=== PATIENT | female | born 1960 | race Caucasian/White ===

== ENCOUNTER → 2017-05-23 | Outpatient (CLI) | payer OTHER | LOC: BMCIMAGING 08:21 | PROVIDERS: ATTEND Nurse Practitioner Adult Health | DX: R05 Cough (principal) ==

== ENCOUNTER 2017-05-27 07:50 | Inpatient (IN) | payer OTHER ==
--- NOTE | 2017-05-27 08:03 | CPEKG ---
Heart Rate: 104 RR Interval: 577 P-R Interval: 136 QRSD Interval: 66 QT Interval: 348 QTC Interval: 458 P [place]: 49 QRS [place]: 72 T Wave [place]: 44 EKG Severity - BORDERLINE ECG - EKG Impression: SINUS TACHYCARDIA EKG Impression: BORDERLINE T ABNORMALITIES, ANTERIOR LEADS Electronically Signed By: Blanco Michelle 27-May-2017 16:12:15
--- NOTE | 2017-05-27 08:26 | EDPHY ---
H & P Smoking Status: Never smoked Time Seen by Provider: 05/27/17 07:59 HPI/ROS: CHIEF COMPLAINT: Cough, fever, myalgias HISTORY OF PRESENT ILLNESS: 56-year-old female presents to the emergency department by private vehicle with her complaining of cough and fever. The patient states over last 1 month she has had a nonproductive cough. She saw her primary care provider last week and had a negative flu swab, negative strep test, and negative chest x-ray. She states that last night she became more acutely ill developed temperature of 101.7 degrees. She felt chilled and achy with diffuse myalgias. Her states that she coughed for several hours last night which was causing her to be short of breath. She states that she was "gagging". She has had some chest pressure. She denies any other chest pain. Specifically denies pleuritic chest pain. Denies abdominal pain. Patient has a history of stage III breast cancer in 2011 and has had multiples reconstructive surgeries. Her right breast has an area that has leaked fluid for several weeks. She saw her plastic surgeon a week ago and is scheduled to them again this week. She also has developed more pain and acute swelling to the right breast as well. She has a history of chronic lymphedema. She developed cellulitis in her right upper extremity and has been taking Keflex 500 mg four times daily for 8 days. She states that the cellulitis has improved. She states that her lymphedema which is chronic to the right upper extremity is "pretty good right now."She denies calf pain or swelling. REVIEW OF SYSTEMS: Constitutional: Fever, chills Eyes: No double or blurry vision. ENT: No sore throat. Respiratory: Cough, shortness of breath Cardiac: No chest pain. Gastrointestinal: No abdominal pain, vomiting or diarrhea. Genitourinary: No dysuria. Musculoskeletal: No neck or back pain. Skin: No rashes. Neurological: headache. (Kat Matson) Past Medical/Surgical History: Valley fever 2012, stage III breast cancer a 2011 treated with bilateral mastectomy, chemotherapy and radiation. She has had multiple reconstructive surgeries most recently February of 2017. (Kat Matson) Social History: (Kat Matson) Physical Exam: General Appearance: Alert, no distress. 37.7, heart rate 125, 124/80, 95% on room air. No respiratory distress. Patient does not appear ill. Eyes: Pupils equal and round. Extraocular motions are all intact. ENT: Mouth: Mucous membranes moist. Respiratory: No wheezing, rhonchi, or rales, lungs are clear to auscultation. Cardiovascular: Regular rate and rhythm. Gastrointestinal: Abdomen is soft and nontender, no masses, no rebound or guarding, bowel sounds normal. Neurological: Alert and oriented x 3, cranial nerves II through XII grossly intact Skin: Right breast reveals postsurgical changes. The inferior aspect of the right breast is erythematous. It is especially tender in the inferior lateral aspect of the right breast. There is some slight fluctuance noted. There is no lymphangitis. There is an area of serous drainage from the inferior aspect of the left breast which could possibly be from a stitch abscess. No purulent drainage expressed. There is no palpable axillary lymphadenopathy noted. Warm and dry, no rashes. Musculoskeletal: Nontender to palpate along the cervical, thoracic or lumbar spine. Neck is supple. Extremities: Full range of motion and no peripheral edema. Psychiatric: Patient is oriented X 3, there is no agitation. (Kat Matson) Constitutional: Initial Vital Signs Temperature (C) 37.7 C 05/27/17 07:52 Heart Rate 125 H 05/27/17 07:52 Respiratory Rate 22 H 05/27/17 07:52 Blood Pressure 124/80 H 05/27/17 07:52 O2 Sat (%) 96 05/27/17 07:52 O2 Delivery Mode Room Air Allergies/Adverse Reactions: Penicillins Allergy (Verified 05/27/17 07:51) Unknown Sulfa (Sulfonamide Antibiotics) [Sulfa(Sulfonamide Antibiotics)] Allergy ( Verified 05/27/17 07:51) Unknown Home Medications: Medication Instructions Recorded ESCITALOPRAM OXALATE [LEXAPRO] 20 mg PO HS 10/09/11 GABAPENTIN 600 mg PO BID 10/09/11 Simvastatin [Zocor 40 mg] 40 mg PO DAILY 10/09/11 buPROPion XL [Wellbutrin Xl] 300 mg PO DAILY 10/09/11 Cholecalciferol Vit D3 [Vitamin D3 2,000 units PO DAILY 02/16/13 2000 units (OTC)] LORazepam [Ativan] 0.5 - 1 mg PO HS PRN #0 tablet 01/18/16 Cephalexin [Cephalexin] 500 mg PO QID 05/27/17 Fluticasone/Salmeterol [Advair Hfa 1 puffs IH BID 05/27/17 45-21 Mcg Inhaler] Medical Decision Making - Diagnostics Imaging: Discussed imaging studies w/ scallop binder Radiologist, I viewed and interpreted images myself ED Course/Re-evaluation: 56-year-old female presents emergency department with fever, cough and myalgias. The patient also is having pain and swelling her right breast. Patient had elevated white blood cell count of over 16,000. Her chemistries were unremarkable. Her lactate was normal. Respiratory pathogen is pending. Given her pain and swelling which is acute involving the right breast, ultrasound has been ordered which revealed 4 cm x 1 cm area of complex fluid collection in the inferior lateral aspect of her right breast. Could possibly represent abscess formation. I spoke with the patient's plastic surgeon, Dr. Romero, who recommended aspiration of the fluid by the radiologist and he would see her tomorrow in the hospital. I explained to the patient the laboratory findings including elevated white blood cell count, fevers and diffuse myalgias. Blood cultures are pending. A chest x-ray was ordered which was normal. Patient clinically does not appear to have pneumonia. Patient had sepsis risk identified given leukocytosis and fever. Patient understands that respiratory pathogen is pending. Patient will have aspiration of fluid for Gram stain and culture. Patient is also currently on antibiotics for cellulitis to the right upper extremity which has improved. She also has history of chronic lymphedema. Case was discussed with Dr. Blanco Michelle, secondary supervising physician, who did not directly evaluate the patient but agrees with treatment and plan. (Kat Matson) He I did not see this patient while she was in the emergency department. However her care was discussed with the PA while the patient was in the department. I agree with treatment plan and management (Blanco Michelle) Differential Diagnosis: Shortness of breath including but not limited to pulmonary infectious process, COPD, asthma, pulmonary embolus and congestive heart failure. (Kat Matson) - Data Points Laboratory Results: Laboratory Results 05/27/17 08:10 05/27/17 08:10 Microbiology Results: MICROBIOLOGY 05/27/17 08:10 Blood Blood Culture - Preliminary 05/27/17 08:21 Breast - Discharge Gram Stain - Final 05/27/17 09:50 Nasal, Sinus - Swab Respiratory Panel (PCR) - Final No Organism Detected Medications Given: Acetaminophen (Tylenol) 650 mg PO Q4 PRN PRN Reason: Pain, Mild/Fever, Can Take PO Stop: 11/23/17 13:24 Last Admin: 05/27/17 14:24 Dose: 650 mg Atorvastatin Calcium (Lipitor) 20 mg PO DAILY KATHERINE Stop: 11/24/17 08:59 Last Admin: 05/28/17 08:11 Dose: 20 mg Bupropion HCl (Wellbutrin Xl) 300 mg PO DAILY KATHERINE Stop: 11/24/17 08:59 Last Admin: 05/28/17 08:12 Dose: 300 mg Chlorphenir/Hydrocodone Polistirex (Tussionex Suspension) 5 ml PO Q12HRS PRN PRN Reason: Cough, Severe Stop: 11/23/17 15:46 Last Admin: 05/27/17 21:16 Dose: 5 ml Enoxaparin Sodium (Lovenox) 40 mg SC DAILY KATHERINE Stop: 11/24/17 08:59 Last Admin: 05/28/17 10:19 Dose: 40 mg Escitalopram Oxalate (Lexapro) 20 mg PO HS KATHERINE Stop: 11/23/17 20:59 Last Admin: 05/27/17 20:13 Dose: 20 mg Gabapentin (Neurontin) 600 mg PO BID KATHERINE Stop: 11/23/17 20:59 Last Admin: 05/28/17 08:12 Dose: 600 mg Lorazepam (Ativan) 0.5 - 1 mg PO HS PRN PRN Reason: anxiety, shortness of breath Stop: 11/23/17 14:08 Last Admin: 05/27/17 21:16 Dose: 0.5 mg Discontinued Medications Vancomycin/Sodium Chloride (Vancomycin 1 Gm (Premix)) 250 mls @ 250 mls/hr IV Q24H [facility] Stop: 06/26/17 16:29 Last Admin: 05/27/17 16:34 Dose: 250 mls Miscellaneous Medication (Fluticasone/Salmeterol [Advair Hfa 45-21 Mcg Inhaler] ) 1 puffs IH BID KATHERINE Stop: 11/23/17 20:59 Last Admin: 05/27/17 21:16 Dose: Not Given Departure - Departure Disposition: [facility] In[facility] Acute Clinical Impression: Cellulitis of right breast, Abscess of right breast, Cough Fever Qualifiers: Fever type: unspecified Qualified Code(s): R50.9 - Fever, unspecified Condition: Good
[2017-05-27 08:33] LABS: PLATELET COUNT 236 10^3/uL (150-400)
[2017-05-27] MEDS ORDERED: LIDOCAINE 1% 300 MG/30 ML SDV ONE (12:26)
[2017-05-27] MEDS: ACETAMINOPHEN 325 MG TAB PO PRN (14:24)
[2017-05-27] MEDS ORDERED: IBUPROFEN 600 MG TAB PO PRN (15:45)
[2017-05-27] MEDS ORDERED: ACETAMINOPHEN 325 MG TAB PO PRN (15:45)
[2017-05-27] MEDS ORDERED: KETOROLAC 30 MG/1 ML SDV IVP PRN (15:45)
[2017-05-27] MEDS ORDERED: PROMETHAZINE HCL 25 MG/ML INJ IVP PRN (15:45)
[2017-05-27] MEDS ORDERED: HYDROmorphone HCL/NS 0.5 MG/ML SYR IVP PRN (15:45)
[2017-05-27] MEDS ORDERED: oxyCODONE IR 5 MG TAB PO PRN (15:45)
[2017-05-27] MEDS ORDERED: ONDANSETRON 4 MG/2 ML VIAL IVP PRN (15:45)
[2017-05-27] MEDS ORDERED: HYDROmorphONE/DILAUDID 1 MG/ML INJ IVP PRN (15:45)
[2017-05-27] MEDS ORDERED: traMADol 50 MG TAB PO PRN (15:45)
--- NOTE | 2017-05-27 16:21 | GHP ---
[f rep st] HISTORY AND PHYSICAL DATE OF ADMISSION: 05/27/2017 CHIEF COMPLAINT: Fever. HISTORY: The patient is a 56-year-old female with a history of breast cancer status post bilateral m astectomies with 8 reconstructive surgeries, last surgery on March 09, 2017. She presents with inc reased right breast erythema and fever. She had developed seepage from her breast incision for about a week, but only last night did she have associated extensive breast erythema and a very high fever. She is currently on Keflex for a right upper extremity cellulitis in her arm. She frequently gets cellulitis in her right upper extremity due to her chronic lymphedema. One week ago, she developed s ome increasing arm erythema and immediately got on Keflex, and the arm cellulitis is mostly resolved. This current infection has, however, occurred while she was finishing up this course of Keflex. Bk julian also complains of a cough for the last month, dry, nonproductive, with myalgias, and she has been s een as an outpatient, tested negative for influenza and strep. PAST MEDICAL HISTORY: 1. Breast cancer, status post bilateral mastectomies. Eight reconstructive surgeries with bilateral silicone implants. Last reconstructive surgery March 09, 2017, performed by Dr. Romero. 2. Chronic lymphedema to the right upper extremity. 3. Chronic skin radiation damage to the right breast. 4. Reactive airway disease. 5. History of valley fever. MEDICATIONS: Please see computer record for full detailed list. ALLERGIES: Penicillin, sulfa. SOCIAL HISTORY: No smoking, 1-2 glasses of wine per night. She lives with her . REVIEW OF SYSTEMS: Complete review of systems obtained. Review of systems negative regarding consti tutional, HEENT, GI, pulmonary, cardiovascular, , hematology, skin, muscular, endocrine, and psych, except for positives as in HPI. FAMILY HISTORY: Reviewed, noncontributory to presenting complaint. PHYSICAL EXAMINATION: GENERAL: Well-developed, well-nourished female, in no acute distress. VITAL SIGNS: Temperature 37.9, although fever on arrival to the floor was 102, pulse 96, blood pressure 11 5/64, satting 94% on room air. HEENT: Normal conjunctivae. Pupils equal and react to light. Sapna l ears and nose. Hearing intact. Normal teeth. Oropharynx moist. NECK: Trachea midline. No thyr omegaly. CHEST: Normal effort. LUNGS: Clear to auscultation bilaterally. CARDIOVASCULAR: Regula r rate and rhythm. No murmur. No lower extremity edema. ABDOMEN: Soft, nontender. No hepatomegal y. SKIN: Her right breast has an area of erythema. There is constant serosanguineous seepage from her wound. Her right upper extremity lymphedema is slightly swollen without erythema. MUSCULOSKELET AL: No cyanosis, clubbing. Strength 5/5 upper and lower extremities. NEURO: Cranial nerves intact . Normal sensation to light touch. PSYCH: Alert and oriented x3. Normal affect. Normal judgment and insight. Normal memory. LAB: White count 16.7, hematocrit 39.5, platelets 236. Sodium 138, potassium 4.3 chloride 103, bica rb 23, BUN 17, creatinine 0.9, glucose 99. Lactate 0.8. EKG viewed by me. My personal interpretati on is normal sinus rhythm, no ST-T wave changes. Chest x-ray is negative. Breast ultrasound showed an abscess of 4 cm with some possible fluid along the reconstructed prosthesis. ASSESSMENT/PLAN: 1. Right breast cellulitis with sepsis as evidenced by fever and leukocytosis. She went to [facility] nd with an attempted aspiration of the possible abscess of 4 cm. However, on ultrasound, it was foun d to be solid, and no fluid was expressed and is felt to be more consistent with mastitis. I will st art her on IV vancomycin and consult Infectious Disease. 2. Right upper extremity lymphedema. This also recently suffered a cellulitis, but this responded w ell to oral Keflex. 3. Cough. Her respiratory PCR is negative. Chest x-ray is negative. She will be treated supportdoris parker. 4. Breast cancer, status post bilateral mastectomy with reconstructive surgeries. She also had radi ation to her right breast which has led to extensive chronic skin changes, intermittent infections, a nd requirement for multiple reconstructions on that side. CODE STATUS: Full. ADMISSION STATUS: Will admit to inpatient as she is medically complex. Anticipate greater than 2 mi dnights. DVT PROPHYLAXIS: She is moderate risk. Will place on subcu Lovenox. /[id number]/MODL
[2017-05-27] MEDS ORDERED: VANCOMYCIN 1 GM in NS 250 ML IV SCH (16:30)
[2017-05-27] MEDS ORDERED: VANCOMYCIN HCL/NORMAL SALINE 250 ML IV SCH (16:30)
--- NOTE | 2017-05-27 17:00 | PDMN ---
Medical Necessity Medical necessity: C/M review: Patient meets INPT criteria under [facility] M-70 Cellulitis: Acute and persistent right breast cellulitis with sepsis, fever, increased right breast erythema, right breast US showed possible abscess of 4 cm , aspiration attempted, it was found to be solid and no fluid expressed, thought to be more consistent with mastitis, WBC 16.74, heart rate 106-107, requiring planned Infectious Disease consult, Wound Care consult, ongoing IV Vancomycin, comorbid chronic right upper extremity lymphedema, recent right upper extremity cellulitis (now mostly resolved) treated with oral Keflex, right upper extremity history of breast cancer S/P bilateral mastectomies with 8 reconstructive surgeries, last surgery 03/09/2017, patient developed seepage from right breast incision for about a week prior to this admission, history of chronic skin radiation damage to the right breast, reactive airway disease, Valley fever. MD anticipates > 2 [place] LOS for ongoing med nec for eval and TX of above.
[2017-05-27] MEDS: ESCITALOPRAM OXALATE 10 MG TAB PO SCH (20:13)
[2017-05-27] MEDS: GABAPENTIN 300 MG CAP PO SCH (20:14)
[2017-05-27] MEDS ORDERED: NON-FORMULARY NEW DRUG (Escitalopram Oxalate [Lexapro] 20 MG) PO SCH (21:00)
[2017-05-27] MEDS ORDERED: FLUTICASONE IH SCH (21:00)
[2017-05-27] MEDS ORDERED: NON-FORMULARY NEW DRUG (Gabapentin [Gabapentin] 600 MG) PO SCH (21:00)
[2017-05-27] MEDS ORDERED: SALMETEROL IH SCH (21:00)
[2017-05-27] MEDS: HYDROcodone/CPM TUSSIONEX 5 ML UDSYR PO PRN (21:16)
[2017-05-27] MEDS: FLUTICASONE IH SCH (21:16)
[2017-05-27] MEDS: LORazepam 1 MG TAB PO PRN (21:16)
[2017-05-27] MEDS: SALMETEROL IH SCH (21:16)
[2017-05-28 05:22] LABS: PLATELET COUNT 214 10^3/uL (150-400)
[2017-05-28] MEDS: ATORVASTATIN CALCIUM 20 MG TAB PO SCH (08:11)
[2017-05-28] MEDS: GABAPENTIN 300 MG CAP PO SCH ×2 (08:12→20:56)
[2017-05-28] MEDS: buPROPion XL 150 MG TAB PO SCH (08:12)
[2017-05-28] MEDS ORDERED: NON-FORMULARY NEW DRUG (Simvastatin [Zocor 40 Mg] 40 MG) PO SCH (09:00)
--- NOTE | 2017-05-28 09:14 | HOSPPROG ---
Hospitalist Progress Note Assessment/Plan: 56 yo F w h/o breast CA and multiple reconstructive surgeries, recurrent infections here w sepsis and breast cellulitis sepsis: septi physiology has resolved infection: continue vanc ID to see seen by Dr miguel likely needs picc for completion of outpt antibiotics given failure of keflex cough: post viral no infiltrate cxr proph: lmwh Subjective: case d/w dr miguel. cxr w no infiltrate (interp by me) Objective: Vital Signs Temp Pulse Resp BP Pulse Ox 36.8 C 95 16 124/70 H 93 05/28/17 08:06 05/28/17 08:06 05/28/17 08:06 05/28/17 08:06 05/28/17 08:06 Laboratory Results 05/28/17 04:17 05/28/17 04:17 05/27/17 05/28/17 05/29/17 05:59 05:59 05:59 Intake Total 1900 Balance 1900 - Physical Exam Constitutional: no apparent distress, appears nourished Eyes: PERRL, anicteric sclera Ears, Nose, Mouth, Throat: moist mucous membranes, hearing normal Cardiovascular: regular rate and rhythym, no murmur, rub, or gallop, No tachycardia Respiratory: no respiratory distress, no rales or rhonchi Gastrointestinal: normoactive bowel sounds, soft, non-tender abdomen Genitourinary: No mock in urethra Skin: warm, other (R breast w serous drainage, radiation changes, warmth. no fluctuance. improved per pt) Musculoskeletal: full muscle strength Neurologic: AAOx3 Psychiatric: interacting appropriately, not anxious ICD10 Worksheet Patient Problems: Problems Problem Status Onset Abscess of right breast Acute Cellulitis of right breast Acute Cough Acute Fever Acute allergic reaction to Oxycontin Active breast cancer Active breast reconstruction Active post mastectomy Active
--- NOTE | 2017-05-28 09:15 | ASMTCASEMG ---
Living Arrangements What is your living Answers: With Spouse arrangement? Who do you live with? Type Of Residence What kind of residence do Answers: House you live in? Discharge Plan Comments Coordination Status Comments Notes: Pt is a 56 y/o female admitted for fever, cough and a breast abscess. Pt has breast cancer status post bilateral mastectomies. Pt has chronic skin radiation damage to the right breast. Pt is currently on IV vanco. ID and wound care has been consulted. Needs are TBD at this time. CM to follow. Plan: TBD Date Signed: 05/28/2017 09:14 AM Electronically Signed By:DANIEL Ford
[2017-05-28] MEDS: ENOXAPARIN 40 MG/0.4 ML SYR SC SCH (10:19)
[2017-05-28] MEDS: SALMETEROL IH SCH ×2 (10:49→10:52)
[2017-05-28] MEDS: FLUTICASONE IH SCH ×2 (10:49→10:52)
[2017-05-28] MEDS: BENZONATATE 100 MG CAP PO PRN (10:55)
[2017-05-28] MEDS: guaiFENesin 600 MG TAB.ER PO SCH ×2 (12:01→20:55)
[2017-05-28] MEDS ORDERED: PNEUMOCOCCAL 0.5ML VACCINE VIAL IM ONE (12:35)
[2017-05-28] MEDS ORDERED: ALTEPLASE 2 MG VIAL IVP PRN (13:21)
--- NOTE | 2017-05-28 13:52 | WOCRNPDOC ---
WOCRN Advanced Assessment Note - Skin Integrity Problem, Advanced Assess Right Breast Abscess Dressing Type: ABD Pad, Other Other Dressing Type: patient's own sports bra Dressing Description: Intact, Shadowed Exudate Amount: Scant (Patient reports quantity of exudate varies dramatically) Exudate Color: Clear Exudate Characteristic(s): Serous Integumentary Issue Intervention: Visualized Under Dressing Filomena Wound Tissue: Erythema Wound Bed Color: Yellow Wound Bed Constitution: Adhered Slough Wound Edges: Well Defined Site Measurement - Head-to-Toe Length X Width X Depth (cm): 0.3x0.4x0.1 Skin Integrity Problem Comment: Patient with history of breast cancer and several reconstructive surgeries. Small, exudative wound along otherwise well healed surgical incision. Patient currently covering wound with ABD held in place by her sports bra. She reports an allergy to adhesives, making application of a dressing more difficult. Will continue with current plan as patient tolerating well and able to change out ABD as needed. Supplied patient with a couple of ABDs. Wound care will not continue to round. Please reconsult PRN.
[2017-05-28] MEDS ORDERED: LIDOCAINE 1% 300 MG/30 ML SDV ONE (14:35)
[2017-05-28] MEDS ORDERED: VANCOMYCIN 1 GM in NS 250 ML IV SCH (16:30)
[2017-05-28] MEDS: VANCOMYCIN 1.25 GM in D5W 250 ML IV SCH (16:36)
--- NOTE | 2017-05-28 18:27 | GCON ---
[f rep st] CONSULTATION INFECTIOUS DISEASES CONSULTATION DATE OF CONSULTATION: 05/28/2017 REQUESTING PHYSICIAN: Dr. Rakel Fernandez REASON FOR CONSULTATION: Right breast cellulitis. HISTORY OF PRESENT ILLNESS: The patient is a 56-year-old female with a past medical history of breas t cancer and prior infection in the right breast after reconstruction in 2012 due to Staphylococcus l ugdunensis, whom I am asked to see in consultation for recurrent right breast infection. The patient has had multiple reconstructive surgeries related to her preceding breast cancer and implants. The most recent reconstructive surgery occurred in February of this year. The patient also has experience d recurrent right upper extremity cellulitis with underlying lymphedema. Over the last several weeks , she did have a recurrent episode of arm cellulitis prompting initiation of cephalexin. This led to resolution of the arm cellulitis, but subsequently she developed right breast erythema and drainage from her incision line. This was associated with fever and shaking chills. Based on those findings, she was seen in the emergency department where she was noted to have a leukocytosis. Subsequently, she underwent ultrasound which suggested a cande-prosthesis fluid collection. Attempted aspiration un rajni ultrasound guidance was unsuccessful. The patient notes that the drainage from her incision line was serous in etiology. Cultures of this material have shown 2+ white blood cells with Gram stain a nd culture being negative. The patient has been started empirically on vancomycin and overall feels clinically improved with stable breast erythema. She has also been seen by Dr. Romero earlier today . The patient also complains of a dry cough for the last month with some associated dyspnea. She di d have a prior history of valley fever and did not undergo complete therapy due to fluconazole angela snider. Given the above findings, I am now asked to assist in her ongoing management. 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 PAST SURGICAL HISTORY: Multiple reconstructive surgeries for breast cancer/breast reconstruction. CURRENT MEDICATIONS: Vancomycin 1 g IV q.24 hours, Lipitor 20 mg p.o. daily, Tessalon Perles 200 mg 3 times a day as needed, Wellbutrin XL 300 mg p.o. daily, Lovenox 40 mg subcu daily, Lexapro 20 mg p. o. at bedtime, Neurontin 600 mg p.o. twice daily, Mucinex 1200 mg p.o. twice daily, Advair 1 puff twi ce daily. ALLERGIES: Penicillin as a child with unclear reaction (tolerates cephalosporins without difficulty) , sulfonamides, fluconazole associated with [employer] toxicity, adhesive tape. SOCIAL HISTORY: Patient does not smoke. She drinks alcohol socially. No drug use history. 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 Recent travel to [place]. No contact with her right breast in swimming pools or hot tubs. Pet dogs at home. FAMILY HISTORY: Breast cancer, coronary artery disease. REVIEW OF SYSTEMS: Outside that noted in the HPI, remainder of a 10-system review is unremarkable. PHYSICAL EXAMINATION: VITAL SIGNS: Temperature maximum 37.9, temperature current 37.1, heart rate 9 8, respiratory rate 16, blood pressure 92/57, oxygen saturation 93% on room air. GENERAL: Patient i s well nourished, well developed, in no acute distress. She appears nontoxic. HEENT: There is no s cleral icterus, conjunctival injection, or conjunctival petechiae. Oropharynx is clear without lesio ns. Mucous membranes are moist. Dentition is in fair repair. There is no nasal discharge. There i s no tenderness over the sinuses. NECK: Supple without palpable lymphadenopathy or thyromegaly. CH EST: Clear to auscultation bilaterally without adventitious sounds. The respiratory effort is stephen l. There is intermittent cough present. CARDIOVASCULAR: Regular rate and rhythm without murmurs, g allops, or rubs. ABDOMEN: Soft, nontender, nondistended. There is no palpable organomegaly. Bowel sounds are present. BREASTS: The right breast shows erythema with warmth over the midportion of th e breast along the incision line; there is a small opening along the incision line from which serous fluid can be expressed, but no purulence; erythema does not extend onto chest wall. MUSCULOSKELETAL: No cyanosis or clubbing. There is lymphedema of the right upper extremity. There is no active cari lulitis of right upper extremity. SKIN: See breast exam. There are no stigmata of endocarditis. S kin is warm and dry to touch. NEUROLOGIC: Patient is alert and interacts appropriately with examine r. Cranial nerves 2-12 are grossly intact. Sensation is decreased over the right breast. LYMPHATIC S: No cervical or supraclavicular nodes. There is lymphedema of the right upper extremity. There i s no lymphangitis. LABORATORY DATA: White blood cell count 10.8, hematocrit 35.8, platelets 214, neutrophils 73%. Seru m creatinine 0.8, venous lactate 0.8, blood cultures x2 no growth to date, serous discharge from the breast shows no organisms with cultures being no [id number]. Respiratory pathogen panel by PCR i s negative. Breast ultrasound and aspiration as outlined above. Chest x-ray shows no focal infiltra te. IMPRESSION: 1. Right breast infection with indwelling implant post reconstruction: Most likely, this will be du e to gram-positive candido, such as Staphylococcus aureus or beta-hemolytic streptococci. Given openin g along incision line and clinical appearance, I have concerns that implant may ultimately require re moval for resolution. Will review this further with Dr. Romero. The patient notes that she has dis cussed this consideration with Dr. Romero earlier today. Gram-negative rods also a consideration, a lthough suspect will be of lower likelihood. 2. History of coccidioidomycosis: Doubt cough related, and chest x-ray shows no infiltrate. RECOMMENDATIONS: 1. Agree with empiric vancomycin. Will increase to 1.25 g IV q.24 hours. 2. Follow blood and breast cultures as available. 3. Will review clinical findings and plan with Dr. Romero. Follow clinical response to above measu res. Thank you for this consultation. We will continue to follow the patient with you. /[id number]/MODL
[2017-05-28] MEDS: ACETAMINOPHEN 325 MG TAB PO PRN (20:54)
[2017-05-28] MEDS: ESCITALOPRAM OXALATE 10 MG TAB PO SCH (20:56)
[2017-05-28] MEDS: HYDROcodone/CPM TUSSIONEX 5 ML UDSYR PO PRN (20:56)
[2017-05-28] MEDS: LORazepam 1 MG TAB PO PRN (21:01)
[2017-05-29] MEDS: FLUTICASONE IH SCH ×2 (00:34→17:32)
[2017-05-29] MEDS: SALMETEROL IH SCH ×2 (00:34→17:32)
[2017-05-29] MEDS: GABAPENTIN 300 MG CAP PO SCH ×2 (08:10→20:26)
[2017-05-29] MEDS: ATORVASTATIN CALCIUM 20 MG TAB PO SCH (08:11)
[2017-05-29] MEDS: buPROPion XL 150 MG TAB PO SCH (08:11)
[2017-05-29] MEDS: guaiFENesin 600 MG TAB.ER PO SCH ×2 (08:11→20:26)
[2017-05-29] MEDS: ENOXAPARIN 40 MG/0.4 ML SYR SC SCH (08:11)
--- NOTE | 2017-05-29 09:22 | HOSPPROG ---
Hospitalist Progress Note Assessment/Plan: 56 yo F w h/o breast CA and multiple reconstructive surgeries, recurrent infections here w sepsis and breast cellulitis sepsis: septic physiology has resolved infection: continue vanc ID following, has picc line seen by Dr miguel concern is that she has a an infected implant and may need removal cough: post viral no infiltrate cxr proph: lmwh Subjective: case d/w dr guerrero. febrile overnight Objective: Vital Signs Temp Pulse Resp BP Pulse Ox 36.9 C 85 18 139/82 H 94 05/29/17 07:06 05/29/17 07:06 05/29/17 07:06 05/29/17 07:06 05/29/17 07:06 Laboratory Results 05/28/17 04:17 05/28/17 04:17 05/28/17 05/29/17 05/30/17 05:59 05:59 05:59 Intake Total 1899 1999 Balance 1899 1999 - Physical Exam Constitutional: no apparent distress, appears nourished Eyes: PERRL, anicteric sclera Ears, Nose, Mouth, Throat: moist mucous membranes, hearing normal Cardiovascular: regular rate and rhythym, no murmur, rub, or gallop Respiratory: no respiratory distress, no rales or rhonchi Gastrointestinal: normoactive bowel sounds, soft, non-tender abdomen Genitourinary: No mock in urethra Skin: other (breast erythematous and warm. unchanged) Musculoskeletal: full muscle strength, no muscle tenderness Neurologic: AAOx3, sensation intact bilaterally Psychiatric: interacting appropriately, not anxious Lymph, Heme, Immunologic: no cervical LAD ICD10 Worksheet Patient Problems: Problems Problem Status Onset Abscess of right breast Acute Cellulitis of right breast Acute Cough Acute Fever Acute allergic reaction to Oxycontin Active breast cancer Active breast reconstruction Active post mastectomy Active
--- NOTE | 2017-05-29 15:04 | PCMIDPN ---
Assessment/Plan: # Right breast cellulitis associated with implant, minimal improvement by report in cellulitic changes which are on the lower part of the breast and right axilla. White count is slightly improved. Persistent fever. --continue vancomycin in light of purulent discharge there is come some concern for Staph aureus. No known history of MRSA. --will check Vanco trough tomorrow --suspect need implant out for infection to adequately improve # Past history of right breast infection with Staphylococcus lugdunensis in 2013 Medications Vancomycin 1.25 g IV Q 24 Microbiology 05/27 blood cultures (2) NGTD 05/27 wound culture: No growth today Subjective: Patient does not feel significant change in redness and swelling of the right breast. Has decided she wants the implant removed and will probably not replace it Objective: Vital Signs Temp Pulse Resp BP Pulse Ox 36.9 C 85 18 139/82 H 94 05/29/17 07:06 05/29/17 07:06 05/29/17 07:06 05/29/17 07:06 05/29/17 07:06 Laboratory Results 05/28/17 04:17 05/28/17 04:17 05/28/17 05/29/17 05/30/17 05:59 05:59 05:59 Intake Total 1899 1999 Balance 1901999 - Physical Exam General Appearance: alert, no apparent distress Respiratory: No accessory muscle use Cardiac/Chest: other (Incision right breast well-healed, small area of opening with purulent discharge. Erythema over the bottom half of the breast tracking to the right axilla. Mild tenderness to palpation moderate warmth) Skin: No rash, No embolic lesions Neuro/Psych: alert, normal mood/affect, oriented x 3 - Line/s LUE PICC Lines: No drainage, No erythema - Time Spent With Patient Time Spent with Patient: greater than 35 minutes (Reviewing potential outcomes including removal of implant, need for suppressive antibiotics if implant retained, infection may not improve without removal of implant.) Time Spent with Patient: Greater than 35 minutes spent on this patients care, greater than 50% of time spent counseling, educating, and coordinating care regarding the above mentioned plan. ICD10 Worksheet Patient Problems: Problems Problem Status Onset Abscess of right breast Acute Cellulitis of right breast Acute Cough Acute Fever Acute allergic reaction to Oxycontin Active breast cancer Active breast reconstruction Active post mastectomy Active
[2017-05-29] MEDS: VANCOMYCIN 1.25 GM in D5W 250 ML IV SCH (16:25)
[2017-05-29] MEDS: ESCITALOPRAM OXALATE 10 MG TAB PO SCH (20:25)
[2017-05-29] MEDS: HYDROcodone/CPM TUSSIONEX 5 ML UDSYR PO PRN (20:26)
[2017-05-29] MEDS: LORazepam 1 MG TAB PO PRN (20:26)
[2017-05-29] MEDS: Fluticasone/Salmeterol [Advair Hfa 115-21 Mcg Inhaler] IH SCH (21:30)
[2017-05-30] MEDS: LORazepam 1 MG TAB PO PRN ×2 (02:32→20:45)
[2017-05-30] MEDS: guaiFENesin 600 MG TAB.ER PO SCH ×2 (10:01→20:45)
[2017-05-30] MEDS: buPROPion XL 150 MG TAB PO SCH (10:01)
[2017-05-30] MEDS: ENOXAPARIN 40 MG/0.4 ML SYR SC SCH (10:02)
[2017-05-30] MEDS: GABAPENTIN 300 MG CAP PO SCH ×2 (10:02→20:45)
[2017-05-30] MEDS: ATORVASTATIN CALCIUM 20 MG TAB PO SCH (10:02)
--- NOTE | 2017-05-30 11:32 | SOAPPROG ---
SOAP Progress Note Assessment/Plan: Assessment: Right breast Cellulitis with likely implant involvement Plan: To OR 05/31/17 for exploration and removal of right breast implant. 05/30/17 11:29 Subjective: Elizabet "feels like shit" Objective: Vital Signs Temp Pulse Resp BP Pulse Ox 36.9 C 86 14 128/70 H 93 05/30/17 08:00 05/30/17 08:00 05/30/17 08:00 05/30/17 08:00 05/30/17 08:00 Laboratory Results 05/28/17 04:17 05/28/17 04:17 05/29/17 05/30/17 05/31/17 05:59 05:59 05:59 Intake Total 1999 725 Balance 1999 725 right breast erythema with serous drainage from right IMF incision. ICD10 Worksheet Patient Problems: Problems Problem Status Onset Abscess of right breast Acute Cellulitis of right breast Acute Cough Acute Fever Acute allergic reaction to Oxycontin Active breast cancer Active breast reconstruction Active post mastectomy Active
--- NOTE | 2017-05-30 11:53 | ASMTCMCOM ---
CM Note CM Note Notes: Pt will go to OR tomorrow for removal of breast implant, unclear if pt will need IV abx at discharge, SARA w/f. Date Signed: 05/30/2017 11:53 AM Electronically Signed By:Salma Nicole RN
--- NOTE | 2017-05-30 11:57 | PCMIDPN ---
Assessment/Plan: # Right breast cellulitis associated with implant, White count is slightly not repeated. remarkable improvement in erythema --continue vancomycin in light of purulent discharge there is come some concern for Staph aureus. No known history of MRSA. --will check Vanco trough --I am less certain of implant involvement today, discussed extensively w patient, nursing, , Plastics # Past history of right breast infection with Staphylococcus lugdunensis in 2013 Medications Vancomycin 1.25 g IV Q 24h Microbiology 05/27 blood cultures (2) NGTD 05/27 wound culture: No growth today Subjective: feeling better less pain R breast no diarrhea Objective: Vital Signs Temp Pulse Resp BP Pulse Ox 36.9 C 86 14 128/70 H 93 05/30/17 08:00 05/30/17 08:00 05/30/17 08:00 05/30/17 08:00 05/30/17 08:00 Laboratory Results 05/28/17 04:17 05/28/17 04:17 05/29/17 05/30/17 05/31/17 05:59 05:59 05:59 Intake Total 1999 725 Balance 1999 72 C-Reactive Protein 74.0 mg/L (<10.0) H 05/29/17 04:17 - Physical Exam General Appearance: alert, no apparent distress Respiratory: No accessory muscle use Neck: supple Cardiac/Chest: other (Morgan erythema R breast, R axilla - significant improvement; still lateral tenderness, small opening 5mm under breast without purulence) Skin: normal color, warm/dry, No rash Neuro/Psych: alert, normal mood/affect, oriented x 3 - Time Spent With Patient Time Spent with Patient: greater than 35 minutes (care coordinated with DR. Romero, reviewed options 1) leaving implant then IV antibiotic then suppressive abx 2) antibiotic therpay then no suppressive 3) remove implant then antibiotics, no suppressive therapy) Time Spent with Patient: Greater than 35 minutes spent on this patients care, greater than 50% of time spent counseling, educating, and coordinating care regarding the above mentioned plan. ICD10 Worksheet Patient Problems: Problems Problem Status Onset Abscess of right breast Acute Cellulitis of right breast Acute Cough Acute Fever Acute allergic reaction to Oxycontin Active breast cancer Active breast reconstruction Active post mastectomy Active
[2017-05-30] MEDS: Fluticasone/Salmeterol [Advair Hfa 115-21 Mcg Inhaler] IH SCH ×2 (11:58→20:08)
--- NOTE | 2017-05-30 12:59 | HOSPPROG ---
Hospitalist Progress Note Assessment/Plan: 56 yo F w h/o breast CA and multiple reconstructive surgeries, recurrent infections here w sepsis and breast cellulitis sepsis: septic physiology has resolved infection: continue vanc ID following, has picc line seen by Dr miguel concern is that she has a an infected implant and may need removal ID and plastic surgery to discuss cough: post viral no infiltrate cxr proph: lmwh Subjective: case d.w dr jordan. improved today Objective: Vital Signs Temp Pulse Resp BP Pulse Ox 36.9 C 86 14 128/70 H 93 05/30/17 08:00 05/30/17 08:00 05/30/17 08:00 05/30/17 08:00 05/30/17 08:00 Laboratory Results 05/28/17 04:17 05/28/17 04:17 05/29/17 05/30/17 05/31/17 05:59 05:59 05:59 Intake Total 1999 725 Balance 1999 725 - Physical Exam Constitutional: no apparent distress, appears nourished Eyes: PERRL, anicteric sclera Ears, Nose, Mouth, Throat: moist mucous membranes, hearing normal Cardiovascular: regular rate and rhythym, no murmur, rub, or gallop Respiratory: no respiratory distress, no rales or rhonchi Gastrointestinal: normoactive bowel sounds, soft, non-tender abdomen Genitourinary: no bladder fullness, No mock in urethra Skin: warm, normal color, other (breast w decreased erythema) Musculoskeletal: full muscle strength Neurologic: AAOx3 ICD10 Worksheet Patient Problems: Problems Problem Status Onset Abscess of right breast Acute Cellulitis of right breast Acute Cough Acute Fever Acute allergic reaction to Oxycontin Active breast cancer Active breast reconstruction Active post mastectomy Active
[2017-05-30] MEDS ORDERED: VANCOMYCIN 1.25 GM in NS 250 ML IV SCH (16:30)
[2017-05-30] MEDS ORDERED: VANCOMYCIN HCL/NORMAL SALINE 250 ML IV SCH (17:00)
[2017-05-30] MEDS: VANCOMYCIN 1 GM in NS 250 ML IV SCH (17:19)
[2017-05-30] MEDS: ESCITALOPRAM OXALATE 10 MG TAB PO SCH (20:45)
[2017-05-30] MEDS: HYDROcodone/CPM TUSSIONEX 5 ML UDSYR PO PRN (20:45)
[2017-05-30] MEDS: BENZONATATE 100 MG CAP PO PRN (22:01)
[2017-05-31] MEDS: LORazepam 1 MG TAB PO PRN (00:50)
[2017-05-31] MEDS: VANCOMYCIN 1 GM in NS 250 ML IV SCH (05:32)
[2017-05-31 07:35] VITALS: BP 150/76
--- NOTE | 2017-05-31 09:31 | PCMIDPN ---
Assessment/Plan: # Right breast cellulitis associated with implant, stable clinical exam. Plan to try to treat aggressively with IV antibiotics and re-assess next week. Definite chance of implant involvement. Plan vancomycin 1 g IV Q 12, dose increased yesterday with low trough of 5. Interagency he completed an care coordinated with case management and hospitalist and plastic surgeon. # Past history of right breast infection with Staphylococcus lugdunensis in 2013 Medications Vancomycin 1.25 g IV Q 12h Microbiology 05/27 blood cultures (2) NGTD 05/27 wound culture: No growth today Subjective: Pain associated with right breast is about the same as yesterday Objective: Vital Signs Temp Pulse Resp BP Pulse Ox 36.8 C 87 18 150/76 H 92 05/31/17 07:34 05/31/17 07:34 05/31/17 07:34 05/31/17 07:34 05/31/17 07:34 Laboratory Results 05/28/17 04:17 05/28/17 04:17 05/30/17 05/31/17 06/01/17 05:59 05:59 05:59 Intake Total 725 Balance 725 C-Reactive Protein 74.0 mg/L (<10.0) H 05/29/17 04:17 - Physical Exam EENT: normal ENT inspection, No scleral icterus Respiratory: No accessory muscle use Cardiac/Chest: other (Ready erythema over lower breast most prominent midline area with associated erythema right axilla. Mild induration and warmth) Skin: No rash Neuro/Psych: alert, normal mood/affect, oriented x 3 - Line/s LUE PICC Lines: No drainage, No erythema, No other - Time Spent With Patient Time Spent with Patient: greater than 35 minutes Time Spent with Patient: Greater than 35 minutes spent on this patients care, greater than 50% of time spent counseling, educating, and coordinating care regarding the above mentioned plan. ICD10 Worksheet Patient Problems: Problems Problem Status Onset allergic reaction to Oxycontin Active breast cancer Active breast reconstruction Active post mastectomy Active Abscess of right breast Acute Cellulitis of right breast Acute Cough Acute Fever Acute
[2017-05-31] MEDS: ATORVASTATIN CALCIUM 20 MG TAB PO SCH ×2 (09:35→09:51)
[2017-05-31] MEDS: buPROPion XL 150 MG TAB PO SCH ×2 (09:35→09:50)
[2017-05-31] MEDS: ENOXAPARIN 40 MG/0.4 ML SYR SC SCH (09:36)
[2017-05-31] MEDS: GABAPENTIN 300 MG CAP PO SCH ×2 (09:36→09:50)
[2017-05-31] MEDS: guaiFENesin 600 MG TAB.ER PO SCH ×2 (09:37→09:51)
--- NOTE | 2017-05-31 09:45 | HOSPPROG ---
Hospitalist Progress Note Assessment/Plan: 56 yo F w h/o breast CA and multiple reconstructive surgeries, recurrent infections here w sepsis and breast cellulitis sepsis: septic physiology has resolved infection: continue vanc ID following, has picc line seen by Dr miguel concern is that she has a an infected implant and may need removal ID and plastic surgery to discuss cough: post viral no infiltrate cxr proph: lmwh dispo: home today > 30 minutes on dc Subjective: paln is to go home w outpt IV abx Objective: Vital Signs Temp Pulse Resp BP Pulse Ox 36.8 C 87 18 150/76 H 92 05/31/17 07:34 05/31/17 07:34 05/31/17 07:34 05/31/17 07:34 05/31/17 07:34 Laboratory Results 05/28/17 04:17 05/28/17 04:17 05/30/17 05/31/17 06/01/17 05:59 05:59 05:59 Intake Total 725 Balance 725 - Physical Exam Constitutional: no apparent distress, appears nourished Eyes: PERRL, anicteric sclera Ears, Nose, Mouth, Throat: moist mucous membranes, hearing normal Cardiovascular: regular rate and rhythym, no murmur, rub, or gallop Respiratory: no respiratory distress, no rales or rhonchi Gastrointestinal: normoactive bowel sounds, soft, non-tender abdomen Genitourinary: no bladder fullness, No mock in urethra Skin: warm Musculoskeletal: full muscle strength Neurologic: AAOx3 ICD10 Worksheet Patient Problems: Problems Problem Status Onset Abscess of right breast Acute Cellulitis of right breast Acute Cough Acute Fever Acute allergic reaction to Oxycontin Active breast cancer Active breast reconstruction Active post mastectomy Active
--- NOTE | 2017-05-31 10:05 | ASMTCMCOM ---
CM Note CM Note Notes: Spoke w/MD, pt will dc home w/home infusion. CM sent referral to [facility], pt is otherwise independent and will dc home w/support of . DC Plan: Home infusion/ [facility] Date Signed: 05/31/2017 10:04 AM Electronically Signed By:Salma Nicole RN
--- NOTE | 2017-05-31 10:24 | PDIAF ---
- Diagnosis Diagnosis: R breast cellulitis Code Status: Full Code - Medication Management Discharge Medications: Medications to Continue on Transfer ESCITALOPRAM OXALATE [LEXAPRO] 20 mg PO HS 10/09/11 [Last Taken 05/26/17] GABAPENTIN 600 mg PO BID 10/09/11 [Last Taken 05/26/17 21:00] Simvastatin [Zocor 40 mg] 40 mg PO DAILY 10/09/11 [Last Taken 05/26/17] buPROPion XL [Wellbutrin 150mg XL] 300 mg PO DAILY 10/09/11 [Last Taken 05/26/17 ] Cholecalciferol Vit D3 [Vitamin D3 2000 units] 2,000 units PO DAILY 02/16/13 [ Last Taken 05/26/17] LORazepam [Ativan] 0.5 - 1 mg PO HS PRN #0 tablet 01/18/16 [Last Taken Unknown] Fluticasone/Salmeterol [Advair Hfa 115-21 Mcg Inhaler] 1 puffs IH BID 05/29/17 [ Last Taken Unknown] HYDROcodone/CPM TUSSIONEX [Tussionex Suspension (RX)] 115 ml PO HS #1 btl [Last Taken Unknown] LORazepam [Ativan (*)] 0.5 - 1 mg PO HS PRN #30 tab 05/31/17 [Last Taken Unknown ] Vancomycin [Vancomycin (*)] 1 gm IV Q12H vial 05/31/17 [Last Taken Unknown] [facility] Antibiotics: vancomycin 1gm IV [id number] [facility] Antibiotic Stop Date: 06/07/17 Discharge Medications: Refer to the Discharge Home Medication list for PRN reason. PICC Care - Routine: Yes - Orders Services needed: Home Care, Registered Nurse Home Care Face to Face: I certify that this patient was under my care and that I had the required [id number]-po-[id number] encounter meeting the encounter requirements on the discharge day. My findings support the fact that the patient is homebound as defined in Home Care Face to Face Continued: CMS Chapter 7 Medicare Benefits Manual 30.1.1 , The condition of the patient is such that there exists a normal inability to leave home and consequently, leaving home would require a considerable and taxing effort. Isolation Type: Droplet Isolation - Labs/Radiology CBC w/diff Date: 06/04/17 (weekly sunday) CMP Date: 06/04/17 (weekly sunday) Vanco Trough Date and Time: 06/04/17 Call or Fax Lab and Imaging Results to: Yahaira Wilson MD [facility]ious [facility] at fax [phone] - Follow Up Care Current Providers and Referrals: Shayy Case MD [Primary Care Provider] - As per Instructions Yahaira Wilson MD [Medical Doctor] - 06/06/17 2:30 pm
--- NOTE | 2017-05-31 16:54 | GDS ---
[f rep st] DISCHARGE SUMMARY DISCHARGE DIAGNOSES: 1. Recurrent right breast cellulitis. 2. History of breast cancer with radiation therapy to the right breast. 3. Cough. CONSULT: Plastic Surgery and ID. HOSPITAL COURSE: Please see admission history and physical by Dr. Rakel Fernandez. The patient prese nted with cellulitis of the right breast. She received vancomycin. There is no microbiologic data. She has a history of strep in the past but given her rapid failure of an outpatient course of antibi otics, vancomycin was initiated. There was a lot of discussion about removal of the implant, but ult imately given her improvement on hospital day 3, it was elected to leave it in and treat with a prolo nged course. The patient has outpatient followup with Infectious Disease and Dr. Tricia Romero . /[id number]/MODL
--- NOTE | 2017-05-31 17:16 | ASDISCHSUM ---
Discharge Information Plan Status:IV ABX/Infusion Medically Cleared to Leave: Discharge Date:05/31/2017 11:39 AM D/C Disposition:Home Health Service ADT D/C Disposition:Home, Routine, Self-Care Projected Discharge Date:05/31/2017 11:00 AM Transportation at D/C:Family Discharge Delay Reason: Follow-Up Date:05/31/2017 11:00 AM Discharge Slot: Final Diagnosis: Placement Information Referral Type:Home Infusion Referral ID:[id number] Provider Name:[facility] ([place], [place]) (Formerly [facility]) Address 1:[address] Address 2: City:[place] Selection Factors: State:[place] Patient Contact Information Contact Name:GEOFFREY Relationship: Address:[address] [place] [address] Home Phone: City:[place] Alternate Phone: State/Zip Code:[place] [address] Email: Financial Information Financial Class:Colibri Heart Valve [facility] Primary [facility] Desc[facility] Primary Plan Number:[id number] Secondary Plan Desc: Secondary Plan Number: Assessment Information LACE LACE Length of stay for Answers: 4-6 days current admission Acuity / Level of Answers: Yes Care: Did the patient have an inpatient admission? Comorbidities - select Answers: Other Notes: breast cancer status po st all that apply bilateral mastectomies, chronic lymphedema, chronic ski n radiation damage on R breast, reactive airway disease, hx of valley fever # of Emergency department Answers: 1-2 visits in the last 6 months Social determinants Answers: Mental health diagnosis (anxiety, depression, pers onality disorders, etc.) Score: 12 Date Signed: 05/31/2017 10:01 AM Electronically Signed By:Salma Nicole RN [facility] Initial CM Assessment Living Arrangements What is your living Answers: With Spouse arrangement? Who do you live with? Type Of Residence What kind of residence do Answers: House you live in? Discharge Plan Comments Coordination Status Comments Notes: Pt is a 56 y/o female admitted for fever, cough and a breast abscess. Pt has breast cancer status post bilateral mastectomies. Pt has chronic skin radiation damage to the right breast. Pt is currently on IV vanco. ID and wound care has been consulted. Needs are TBD at this time. CM to follow. Plan: TBD Date Signed: 05/28/2017 09:14 AM Electronically Signed By:DANIEL Ford [facility] CM Progress Note CM Note CM Note Notes: Pt will go to OR tomorrow for removal of breast implant, unclear if pt will need IV abx at discharge, CM w/f. Date Signed: 05/30/2017 11:53 AM Electronically Signed By:Salma Nicole RN [facility] CM Progress Note CM Note CM Note Notes: Spoke w/, pt will dc home w/home infusion. CM sent referral to [facility], pt is otherwise independent and will dc home w/support of . DC Plan: Home infusion/ [facility] Date Signed: 05/31/2017 10:04 AM Electronically Signed By:Salma Nicole RN Case Management Discharge Plan Note Case Management Discharge Discharge Order Complete? Answers: Yes Patient to Obtain Answers: Other Notes: [facility] Medications Transportation Arranged Answers: Family/Friends Faxed Final Orders Answers: Yes Family Notified Answers: Yes Discharge Comments Notes: Geo/lilia AVILA, final orders faxed. Amy at [facility] and Araseli at [facility] notified, RN to call report. Date Signed: 05/31/2017 11:52 AM Electronically Signed By:Salma Nicole RN Intervention Information
== END 2017-05-31 11:39 | disposition home or self-care (01) | DRG 921 ==
LOC: F3E 12:24 → OBSVTOIN 15:44
PROVIDERS: ADMIT Internal Medicine; ATTEND Internal Medicine
PROC: 02HV33Z Insertion of Infusion Device into Superior Vena Cava, Percutaneous Approach (ICD-10-PCS; principal; 2017-05-28)
DX: T85.79XA Infection and inflammatory reaction due to other internal prosthetic devices, implants and grafts, initial encounter (principal); N61.1 Abscess of the breast and nipple; J45.909 Unspecified asthma, uncomplicated; I97.2 Postmastectomy lymphedema syndrome; R05 Cough; Z90.13 Acquired absence of bilateral breasts and nipples; Z23 Encounter for immunization; Z85.3 Personal history of malignant neoplasm of breast; Z88.0 Allergy status to penicillin
CPT/HCPCS: C1751; G0009; J1650; J1885; J2997; J3370

== ENCOUNTER 2017-07-20 09:25 | Inpatient (IN) | payer OTHER ==
[2017-07-20] MEDS ORDERED: HYDROCODONE/APAP 5/325 TAB PO PRN (09:45)
[2017-07-20] MEDS: NS 1,000 ML IV SCH ×2 (09:49→21:27)
[2017-07-20] MEDS ORDERED: HYDROmorphONE/DILAUDID 1 MG/ML INJ IVP PRN (09:50)
[2017-07-20] MEDS ORDERED: ONDANSETRON DISINTEGRATING 4 MG TAB PO PRN (09:50)
[2017-07-20] MEDS ORDERED: ONDANSETRON 4 MG/2 ML VIAL IVP PRN (09:50)
[2017-07-20] MEDS: ceFAZolin 2 GM/DEXTROSE 100 ML IV SCH ×2 (09:54→16:45)
--- NOTE | 2017-07-20 09:55 | PDGENHP ---
History and Physical - Chief Complaint breast pain, fever - History of Present Illness 57 yo female with h/o breast cancer diagnosed in 2011 s/p b/l mastectomy, chemo , radiation and breast implants complicated by infection. She was treated with 10 days of IV Vancomycin followed by oral Keflex for a breast infection related to wound dehiscence from reconstruction in 05/2017. She has since been on suppressive cephalexin, which was stopped 2 days prior to arrival. This morning , she developed fever to 101 and increased breast pain. No N/V. No abdominal pain, CP or SOB. She saw Dr. Wilson in ID clinic and was sent to hospital for direct admission. Dr. Romero, plastic surgery, is consulted and will plan to operate to remove current implant and wash out infection. Wound culture was obtained. Blood cultures will be drawn and she is started on IV Ancef. NPO for now pending surgery likely today. Pt has requested to have her right implant removed during this trip to the OR due to ongoing issues with infection and she would like to avoid further complications. She will review this with Dr. Romero prior to surgery today. History Information - Allergies/Home Medication List Allergies/Adverse Reactions: oxycodone Allergy (Unknown, Verified 07/20/17 15:44) Hives Sulfa (Sulfonamide Antibiotics) Allergy (Unknown, Verified 07/20/17 15:44) Unknown adhesive tape Allergy (Verified 05/28/17 13:57) Itching Penicillins Allergy (Verified 05/28/17 13:59) Unknown Home Medications: ESCITALOPRAM OXALATE [LEXAPRO] 20 mg PO HS 10/09/11 [Last Taken 07/19/17] GABAPENTIN 600 mg PO BID 10/09/11 [Last Taken 07/20/17] Simvastatin [Zocor 40 mg] 40 mg PO DAILY 10/09/11 [Last Taken 07/19/17] buPROPion XL [Wellbutrin 150mg XL] 300 mg PO DAILY 10/09/11 [Last Taken 07/20/17 ] Cholecalciferol Vit D3 [Vitamin D3 2000 units] 2,000 units PO HS 02/16/13 [Last Taken 07/19/17] Fluticasone/Salmeterol [Advair Hfa 115-21 Mcg Inhaler] 1 puffs IH BID 05/29/17 [ Last Taken Unknown] HYDROcodone/CPM TUSSIONEX [Tussionex Suspension (RX)] 115 ml PO HS PRN 07/20/17 [Last Taken Unknown] I have personally reviewed and updated: family history, medical history, social history, surgical history - Past Medical History hyperlipidemia Additional medical history: breast cancer diagnosed 2011 - followed by Dr. Lamb , currently in remission. s/p b/l mastectomy with implants. h/o breast infection related to implant, s/p implant removal and reimplantation 01/2013. H /O coccidiomycosis - Surgical History Additional surgical history: b/l mastectomy. breast implants, right side removed and remimplanted 2/2 infection - Family History Positive for: non-pertinent - Social History Smoking Status: Never smoked Additional social history: , retired [employer]. at bedside. Review of Systems Review of Systems: ROS: 10pt was reviewed & negative except for what was stated in HPI & below Physical Exam Physical Exam: Temp Pulse Resp BP Pulse Ox 38.6 C H 110 H 18 117/86 H 95 07/20/17 09:41 07/20/17 09:41 07/20/17 09:41 07/20/17 09:41 07/20/17 09:41 Constitutional: no apparent distress Eyes: PERRL Ears, Nose, Mouth, Throat: moist mucous membranes Cardiovascular: regular rate and rhythym Respiratory: no respiratory distress, clear to auscultation Gastrointestinal: normoactive bowel sounds, soft, non-tender abdomen Skin: warm, other (left breast with central and inferior mild erythema vs chronic discoloration, +warm to touch, wound device in breast) Musculoskeletal: full muscle strength Neurologic: AAOx3 Psychiatric: interacting appropriately Lab Data & Imaging Review 07/20/17 10:10 07/20/17 10:10 Assessment & Plan Assessment: Right breast infection - recently treated with Vanco and Keflex, infection recurred 2 days after stopping keflex. No hypotension, but a bit tachycardic. -Ancef 2g IV q8h per ID, appreciate assistance -wound Cx pending from clinic, BCx's sent -Dr. Romero to take to OR today for right implant removal due to ongoing infectious problems (possibly left implant removal for pplx per pt request, depending on surgical opinion) -NPO for now, NS initiated on arrival -send cbc, cmp, lactate, INR Sepsis 2/2 above (HR, temp, wbc's, breast infection) - no criteria for severe sepsis. -bolus 1L now -cont NS, atbx, trend wbc's H/O breast cancer - s/p b/l mastectomy with implants and associated infectious complications as outlined above Hyperlipidemia - cont statin Full code DVT PPLX - defer pharm for now as likely to go to OR today, start Lovenox 24 hrs post-op. SCD's for now Dispo - inpt, anticipate >48 hrs hospitalization for ongoing management of breast infection
[2017-07-20 10:24] LABS: PLATELET COUNT 207 10^3/uL (150-400)
[2017-07-20 10:35] LABS: INR 1.03 (0.83-1.16); PROTIME(PATIENT) 13.7 SEC (12.0-15.0)
[2017-07-20] MEDS ORDERED: HYDROCODONE PO PRN (12:08)
[2017-07-20] MEDS ORDERED: CHLORPHENIRAMINE PO PRN (12:08)
--- NOTE | 2017-07-20 12:19 | PDMN ---
Medical Necessity Medical necessity: Patient meets inpatient criteria per physician note and [facility] [place] -[facility] Cellulitis (history of breast cancer, s/p chemo, radiation, and breast implant complicated by infection; treated w/cephalosporin for breast infection , then suppressive cephalexin which was stopped 2 days prior to admission, now w/temp to 101, increased breast pain and tachycardia to 110, leukocytosis/ WBC > 12,000; anticipated LOS > 2 midnights for ongoing IV antibiotics, pending return to surgery.)
--- NOTE | 2017-07-20 12:21 | PCMIDPN ---
Assessment/Plan: Fever, malaise, leukocytosis due to R breast cellulitis associated with implant in place from breast reconstruction following mastectomy for breast cancer. Minimal skin changes at the time of admission but significant warmth and pain at the right breast. Further, when wound was probed significant drainage was easily expressed. Patient without history of MRSA and infection was easily controlled with suppressive Keflex therefore doubt MRSA is mediating this infection. Would direct therapy toward Streptococcus and MSSA. Normal renal function --start IV cefazolin --blood cx --Dr. Romero remove implant this afternoon and take OR cultures --wound culture was taken in ID clinic Subjective: 56 year old /White female with a history of bilateral mastectomy for breast cancer, coccidiomycosis, right breast cellulitis/implant infection s/p removal and reimplantation 02/18/2013 (cultures showing Staph lugdunensis and Haemophilus parainfluenza) who most recently had cellulitis associated with preceding small area of dehiscence of breast reconstruction incision in May 2017. Patient with underlying breast implant with concern of involvement with cellulitis. Patient initially received IV vancomycin 05/28/2017 through 06/06/2017 and had a good response and I transitioned her to Keflex 500 mg three times daily due to strong suspicion that Streptococcus was mediated in her disease. Cultures were unrevealing. Patient was maintained on Keflex 3 times daily during travels over the month of June and on Sunday07/18/2017 she discontinued Keflex on the instruction of her plastic surgeon with the plans of either closing this small area of dehiscence if no infection returned, or removal of implant if infection returned. This morning/last night patient developed increasing pain and drainage of the right breast and fever to almost 102 with associated malaise. She urgently came to our office and was evaluated by me and was found to be tachycardic and febrile with painful right breast with drainage. Initially we thought we could manage her disease through IV antibiotic infusion but with increasing right breast pain and malaise I admitted her to the hospital. Care was coordinated with Dr. Teressa Martinez and Dr. Binu Romero. Patient is to go to the OR this afternoon to have implant removed. Objective: Vital Signs Temp Pulse Resp BP Pulse Ox 38.6 C H 110 H 18 117/86 H 95 07/20/17 09:41 07/20/17 09:41 07/20/17 09:41 07/20/17 09:41 07/20/17 09:41 Laboratory Results 07/20/17 10:10 07/20/17 10:10 My physical exam was documented in clinic note. ICD10 Worksheet Patient Problems: Problems Problem Status Onset allergic reaction to Oxycontin Active breast cancer Active breast reconstruction Active post mastectomy Active Abscess of right breast Acute Cellulitis of right breast Acute Cough Acute Fever Acute
[2017-07-20] MEDS: HYDROmorphONE/DILAUDID 1 MG/ML INJ IVP PRN ×3 (12:55→18:59)
[2017-07-20] MEDS ORDERED: NS 1,000 ML IV ONE (13:52)
[2017-07-20] MEDS: HYDROCODONE/APAP 5/325 TAB PO PRN ×3 (14:33→23:38)
[2017-07-20] MEDS ORDERED: LR 1,000 ML IV ONE (15:42)
[2017-07-20] MEDS ORDERED: BACITRACIN ZINC 14.2 GM OINTTUBE TP ONE (15:59)
[2017-07-20] MEDS ORDERED: LIDOCAINE 1% 300 MG/30 ML SDV ONE (16:00)
[2017-07-20] MEDS ORDERED: BUPIVACAINE 0.25% 30 ML SDV ONE (16:00)
[2017-07-20] MEDS ORDERED: EPINEPHrine 1 MG/ML INJ ONE (16:00)
[2017-07-20] MEDS ORDERED: GENTAMICIN SULFATE 80 MG/2 ML VIAL ONE (16:00)
[2017-07-20] MEDS ORDERED: BACITRACIN 50,000 UNITS/10 ML SYR IRR ONE (16:01)
[2017-07-20] MEDS ORDERED: ceFAZolin 1 GM/5 ML SYR ONE (16:01)
--- NOTE | 2017-07-20 16:14 | PDANEPAE ---
ANE History of Present Illness Breast implants removal ANE Past Medical History - Cardiovascular History Hx Hypertension: No Hx Arrhythmias: No Hx Coronary Artery / Peripheral Vascular Disease: No Hx CHF / Valvular Disease: No Hx Palpitations: No - Pulmonary History Hx COPD: No Hx Asthma/Reactive Airway Disease: No Hx Oxygen in Use at Home: No Hx Sleep Apnea: Yes Sleep Apnea Screening Result - Last Documented: Positive - Endocrine History Hx Diabetes: No Hypothyroid: No Hyperthyroid: No Obesity: mild - Renal History Hx Renal Disorders: No - Neurological & Psychiatric Hx Hx Neurological and Psychiatric Disorders: Yes - Chronic Pain History Chronic Pain: No ANE Review of Systems Review of Systems: - Exercise capacity METS (RN): 4 METS ANE Patient History - Allergies Allergies/Adverse Reactions: oxycodone Allergy (Unknown, Verified 07/20/17 15:44) Hives Sulfa (Sulfonamide Antibiotics) Allergy (Unknown, Verified 07/20/17 15:44) Unknown adhesive tape Allergy (Verified 05/28/17 13:57) Itching Penicillins Allergy (Verified 05/28/17 13:59) Unknown - Home Medications Home Medications: ESCITALOPRAM OXALATE [LEXAPRO] 20 mg PO HS 10/09/11 [Last Taken 07/19/17] GABAPENTIN 600 mg PO BID 10/09/11 [Last Taken 07/20/17] Simvastatin [Zocor 40 mg] 40 mg PO DAILY 10/09/11 [Last Taken 07/19/17] buPROPion XL [Wellbutrin 150mg XL] 300 mg PO DAILY 10/09/11 [Last Taken 07/20/17 ] Cholecalciferol Vit D3 [Vitamin D3 2000 units] 2,000 units PO HS 02/16/13 [Last Taken 07/19/17] Fluticasone/Salmeterol [Advair Hfa 115-21 Mcg Inhaler] 1 puffs IH BID 05/29/17 [ Last Taken Unknown] HYDROcodone/CPM TUSSIONEX [Tussionex Suspension (RX)] 115 ml PO HS PRN 07/20/17 [Last Taken Unknown] - NPO status NPO Status: no food or drink >8 hours NPO Since - Liquids (Date): 07/20/17 NPO Since - Liquids (Time): 00:00 NPO Since - Solids (Date): 07/20/17 NPO Since - Solids (Time): 00:00 - Anes Hx Anes Hx: no prior problems - Smoking Hx Smoking Status: Never smoked Marijuana use: No - Alcohol Use Alcohol Use: Occasionally ANE Labs/Vital Signs - Labs Result Diagrams: 07/20/17 10:10 07/20/17 10:10 - Vital Signs Blood Pressure: 94/66 Heart Rate: 105 Respiratory Rate: 16 O2 Sat (%): 98 Height: 152.4 cm Weight: 58.967 kg ANE Physical Exam - Airway Neck exam: FROM Mallampati Score: Class 2 - Pulmonary Pulmonary: no respiratory distress, no rales or rhonchi - Cardiovascular Cardiovascular: regular rate and rhythym, no murmur, rub, or gallop ANE Anesthesia Plan Anesthesia Plan: GA w LMA
[2017-07-20] MEDS ORDERED: MIDAZOLAM 2 MG/2 ML VIAL IVP ONE (16:15)
[2017-07-20] MEDS ORDERED: PROPOFOL/EMULSION 500 MG/50 ML BOTTLE IV ONE (16:29)
[2017-07-20] MEDS ORDERED: fentaNYL 100 MCG/2 ML INJ ONE ×4 (16:29→18:24)
[2017-07-20] MEDS ORDERED: PHENYLEPHRINE HCL 100 MCG/ML SYR ONE (17:45)
[2017-07-20] MEDS ORDERED: ONDANSETRON 4 MG/2 ML VIAL ONE (17:45)
[2017-07-20] MEDS ORDERED: NALOXONE HCL 0.4 MG/ML INJ IVP PRN (18:04)
[2017-07-20] MEDS: fentaNYL 100 MCG/2 ML INJ IVP PRN ×3 (18:06→18:32)
--- NOTE | 2017-07-20 18:10 | POSTANESTH ---
Post Anesthetic Evaluation Cardiovascular Status: Normal, Stable Respiratory Status: Normal, Stable Level of Consciousness/Mental Status: Can Participate in Eval Pain Control: Adequate, Prn Tx Ordered Nausea/Vomiting Control: Adequate, Prn Tx Ordered Complications Possibly Related to Anesthesia: None Noted (BP normal awake)
--- NOTE | 2017-07-20 18:48 | GOP ---
[f rep st] OPERATIVE REPORT DATE OF OPERATION: 07/20/2017 SURGEON: Tricia Romero Jr., MD CAP SIZER: Robert Davis CST, by surgeon request (skilled certified surgical technician was necessary due t o the technical complexity of the case and desire to minimize patient's anesthesia time). ANESTHESIA: Patient had a general anesthetic. ANESTHESIOLOGIST: Leatha Rey MD. PREOPERATIVE DIAGNOSIS: Exposed infected right breast implant. POSTOPERATIVE DIAGNOSIS: Exposed infected right breast implant. PROCEDURE PERFORMED: 1. Irrigation and debridement, right breast. 2. Removal of bilateral breast implants. 3. Bilateral adjacent tissue transfer to close defect 45 sq cm. FINDINGS: SPECIMENS: Intraoperative cultures were taken. ESTIMATED BLOOD LOSS: 10 cc. INDICATIONS: Elizabet is a delightful 57-year-old white female who has had a very complicated reconstru ctive history following a breast cancer diagnosis that had been treated by both radiation therapy and mastectomy. She had exposure of her right implant which subsequently developed into an infection. She was brought to the operating room and elected to have both implants removed and the mastectomy fl aps and the chest wall skin advance to achieve a smooth closure for use with future prosthesis. DESCRIPTION OF PROCEDURE: After the risks and benefits of the procedure were explained to the patien t highlighting bleeding, infection, contour irregularities, asymmetry, poor cosmetic outcome, recurre nt infection, and need for additional procedures, formal operative consent was obtained. She was taken to the operating room. After adequate inhalational general anesthesia was provided by Dr. Leatha Rey, her premarked incisions were injected with 1% lidocaine containing adrenaline. She was prepped and draped in normal sterile fashion. Procedure began by excising skin around the recons tructed nipple-areolar complex on the left breast. Electrocautery was used to dissect down to the br east capsule. A capsulotomy was performed, and the skin and subcutaneous tissue and capsule were rem guillermina. The implant was removed. The pocket was inspected. No abnormalities were noted. The pocket was irrigated with triple antibiotic saline solution. The skin mastectomy flaps were then trimmed an d advanced for horizontal closure to achieve a smooth contour. Prior to closure, a 15 round drain wa s placed. The defect was roughly 45 sq cm. A 3-layer closure with good skin eversion was carried ou t. Attention was then turned to the contralateral breast and an incision along the inframammary crease w as made to include the area of implant exposure. No overt purulent fluid was encountered. The tissu e cultures were taken. The implant was removed. There was non adherent AlloDerm in the base of the wound. This was all removed. Excess skin and scar tissue were removed. The radiated skin was very thin and friable with minimal elasticity, and the tissue was trimmed conservatively to enact again a smooth chest wall contour. Defect again being 45 sq cm, the tissue was advanced. The pocket was irr igated using triple antibiotic saline and again a 3-layer closure was performed. She had 15 cc 0.25% plain Marcaine instilled into the drains that were placed on each side. She was extubated in the op erating room, taken to recovery room awake and in stable condition. DRAINS: 2 CARMELITA drains. COMPLICATIONS: None. /[id number]/MODL
[2017-07-20] MEDS: SALMETEROL IH SCH (20:53)
[2017-07-20] MEDS: FLUTICASONE IH SCH (20:53)
[2017-07-20] MEDS ORDERED: NON-FORMULARY NEW DRUG (Gabapentin [Gabapentin] 600 MG) PO SCH (21:00)
[2017-07-20] MEDS ORDERED: NON-FORMULARY NEW DRUG (Escitalopram Oxalate [Lexapro] 20 MG) PO SCH (21:00)
[2017-07-20] MEDS ORDERED: ESCITALOPRAM OXALATE 10 MG TAB PO SCH (21:00)
[2017-07-20] MEDS: diphenhydrAMINE 25 MG CAP PO PRN ×2 (21:26→23:38)
[2017-07-20] MEDS: GABAPENTIN 300 MG CAP PO SCH (21:38)
[2017-07-20] MEDS: ESCITALOPRAM OXALATE 10 MG TAB PO SCH (21:39)
[2017-07-20] MEDS: LORazepam 1 MG TAB PO PRN (21:39)
[2017-07-21] MEDS: ceFAZolin 2 GM/DEXTROSE 100 ML IV SCH ×3 (01:04→17:06)
[2017-07-21 05:16] LABS: PLATELET COUNT 192 10^3/uL (150-400)
[2017-07-21] MEDS: HYDROCODONE/APAP 10/325 TAB PO PRN ×3 (06:59→21:55)
[2017-07-21] MEDS: GABAPENTIN 300 MG CAP PO SCH ×2 (08:17→21:55)
[2017-07-21] MEDS: diphenhydrAMINE 25 MG CAP PO PRN ×3 (08:17→21:54)
[2017-07-21] MEDS: buPROPion XL 150 MG TAB PO SCH (08:17)
[2017-07-21] MEDS: FLUTICASONE IH SCH ×2 (08:20→20:07)
[2017-07-21] MEDS: SALMETEROL IH SCH ×2 (08:20→20:07)
[2017-07-21] MEDS ORDERED: NON-FORMULARY NEW DRUG (Simvastatin [Zocor 40 Mg] 40 MG) PO SCH (09:00)
[2017-07-21] MEDS ORDERED: ATORVASTATIN CALCIUM 20 MG TAB PO SCH (09:00)
--- NOTE | 2017-07-21 11:16 | PCMIDPN ---
Assessment/Plan: 1. Right breast cellulitis in patient with previous history of breast cancer/ lymphedema status post removal of breast implants on both sides: Continue cefazolin as is. Await culture results. Patient is clinically stable. Suspect leukocytosis is from postoperative state. No diarrhea. Subjective: In good spirits. Status post removal of both breast implants yesterday. Cultures are pending. No diarrhea, nausea or vomiting. Objective: Cefazolin 2 g IV q.8 hours day 1 Afebrile Vital Signs Temp Pulse Resp BP Pulse Ox 37.1 C 85 18 99/53 L 95 07/21/17 07:52 07/21/17 07:52 07/21/17 07:52 07/21/17 07:52 07/21/17 07:52 Microbiology 07/20/17 17:05 Gram Stain - Final Breast - Eswab Laboratory Results 07/21/17 04:46 07/20/17 10:10 07/20/17 07/21/17 07/22/17 05:59 05:59 05:59 Intake Total 1000 Output Total 595 Balance 405 Cultures are pending Gram stains show no organisms - Physical Exam General Appearance: alert, no apparent distress EENT: pharynx normal, No thrush Respiratory: lungs clear Cardiac/Chest: other (Chest wall is wrapped; I did not take down the primary surgical dressings. [address] on each side, with minimal serosanguineous drainage) Extremities: other (Right arm with lymphedema) Skin: No rash ICD10 Worksheet Patient Problems: Problems Problem Status Onset allergic reaction to Oxycontin Active breast cancer Active breast reconstruction Active post mastectomy Active Abscess of right breast Acute Cellulitis of right breast Acute Cough Acute Fever Acute
[2017-07-21] MEDS: HYDROmorphONE/DILAUDID 1 MG/ML INJ IVP PRN ×3 (11:31→20:02)
--- NOTE | 2017-07-21 11:42 | ASMTCASEMG ---
Living Arrangements What is your living Answers: With Spouse arrangement? Who do you live with? Type Of Residence What kind of residence do Answers: House you live in? Case Management Evaluation Functional: Able to Answers: Yes return Home with Prior Level of Function/Care Discharge Plan Comments Coordination Status Comments Notes: Pt was admitted with R breast cellulitis. She has a hx of breast CA in 2011 with bilateral mastectomies, chemo, and radiation. She is s/p removal of both implants, I&D of R breast. Cultures pending, ID following. Pt lives with her in [place]. She is currently on IV Ancef and has had [facility] in the past for home infusion needs. D/C needs unclear at this time. CM will follow. Date Signed: 07/21/2017 11:41 AM Electronically Signed By:SOFI Lobo
[2017-07-21] MEDS ORDERED: POLYETHYLENE GLYCOL 3350 17 GM PKT PO PRN (12:13)
[2017-07-21] MEDS ORDERED: LACTULOSE 20 GM/30 ML UDCUP PO PRN (12:13)
[2017-07-21] MEDS ORDERED: BISACODYL 10 MG SUPP PR PRN (12:13)
[2017-07-21] MEDS ORDERED: MAGNESIUM HYDROXIDE 30 ML UDCUP PO PRN (12:13)
--- NOTE | 2017-07-21 12:13 | HOSPPROG ---
Hospitalist Progress Note Assessment/Plan: Right breast infection s/p b/l implant removal POD #1 - doing well. Pain controlled. Advance care. Cultures unrevealing thus far. -cont Ancef, follow culture data -ID following AHRF - suspect atelectasis / opioids. Add IS, wean as able. H/O breast cancer - in remission Hyperlipidemia - cont statin Full code DVT PPLX - lovenox Dispo - cont inpt Subjective: Pt doing well. Up in chair. Pain controlled. No fevers. No CP or SOB. Objective: Vital Signs Temp Pulse Resp BP Pulse Ox 37.1 C 82 18 92/56 L 98 07/21/17 07:52 07/21/17 11:22 07/21/17 11:22 07/21/17 11:22 07/21/17 11:22 Microbiology 07/20/17 17:05 Gram Stain - Final Breast - Eswab Laboratory Results 07/21/17 04:46 07/20/17 10:10 07/20/17 07/21/17 07/22/17 05:59 05:59 05:59 Intake Total 1000 Output Total 595 Balance 405 PT 13.7 SEC (12.0-15.0) 07/20/17 10:10 INR 1.03 (0.83-1.16) 07/20/17 10:10 - Physical Exam Constitutional: no apparent distress Eyes: PERRL Ears, Nose, Mouth, Throat: moist mucous membranes Cardiovascular: regular rate and rhythym Respiratory: no respiratory distress, clear to auscultation, other (chest wall dressing c/d/i) Gastrointestinal: normoactive bowel sounds, soft, non-tender abdomen Skin: warm Musculoskeletal: full muscle strength Neurologic: AAOx3 Psychiatric: interacting appropriately ICD10 Worksheet Patient Problems: Problems Problem Status Onset allergic reaction to Oxycontin Active breast cancer Active breast reconstruction Active post mastectomy Active Abscess of right breast Acute Cellulitis of right breast Acute Cough Acute Fever Acute
[2017-07-21] MEDS: ESCITALOPRAM OXALATE 10 MG TAB PO SCH (21:55)
[2017-07-21] MEDS: SENNOSIDES/DOCUSATE SODIUM TAB PO SCH (21:55)
[2017-07-21] MEDS: LORazepam 1 MG TAB PO PRN (21:56)
[2017-07-22] MEDS: ceFAZolin 2 GM/DEXTROSE 100 ML IV SCH ×2 (01:49→09:09)
[2017-07-22] MEDS: HYDROCODONE/APAP 10/325 TAB PO PRN ×5 (03:58→23:06)
[2017-07-22 04:50] LABS: PLATELET COUNT 192 10^3/uL (150-400)
[2017-07-22] MEDS: FLUTICASONE IH SCH ×2 (09:02→21:01)
[2017-07-22] MEDS: SALMETEROL IH SCH ×2 (09:02→21:01)
[2017-07-22] MEDS: SENNOSIDES/DOCUSATE SODIUM TAB PO SCH ×2 (09:08→20:07)
[2017-07-22] MEDS: buPROPion XL 150 MG TAB PO SCH (09:08)
[2017-07-22] MEDS: diphenhydrAMINE 25 MG CAP PO PRN ×2 (09:08→20:06)
[2017-07-22] MEDS: GABAPENTIN 300 MG CAP PO SCH ×2 (09:09→20:06)
--- NOTE | 2017-07-22 10:25 | HOSPPROG ---
Hospitalist Progress Note Assessment/Plan: Right breast infection s/p b/l implant removal POD #2 - Enterococcus on wound Cx. BCx's ngtd. Pt felt fever/chills overnight. Discussed with ID. -change atbx to Vancomycin for enterococcal coverage per ID -await sensitivities -low threshold to repeat BCx's if fever recurs AHRF - suspect atelectasis, but with fever/cough, will check PA/lateral CXR Left ear pain - mild erythema of left TM, on atbx, may be some pressure injury post-intubation H/O breast cancer - in remission Hyperlipidemia - cont statin Full code DVT PPLX - lovenox Dispo - cont inpt Subjective: Pt notes feeling feverish, with chills overnight. Also c/o left ear pain and new cough, not productive. Denies CP or SOB. Pain controlled. Taking po well. Ambulating. Objective: Vital Signs Temp Pulse Resp BP Pulse Ox 37.8 C 102 H 18 121/72 H 93 07/22/17 07:38 07/22/17 07:38 07/22/17 07:38 07/22/17 07:38 07/22/17 07:38 Microbiology 07/20/17 17:05 Gram Stain - Final Breast - Eswab Laboratory Results 07/22/17 04:20 07/20/17 10:10 07/21/17 07/22/17 07/23/17 05:59 05:59 05:59 Intake Total 1000 2700 Output Total 595 1142 Balance 405 1558 PT 13.7 SEC (12.0-15.0) 07/20/17 10:10 INR 1.03 (0.83-1.16) 07/20/17 10:10 - Physical Exam Constitutional: no apparent distress Eyes: PERRL Ears, Nose, Mouth, Throat: moist mucous membranes, other (left TM with mild focal erythema and scarring) Cardiovascular: regular rate and rhythym, no murmur, rub, or gallop Respiratory: no respiratory distress, other (bibasilar atelectatic crackles) Gastrointestinal: normoactive bowel sounds, soft, non-tender abdomen Skin: warm Musculoskeletal: full muscle strength Neurologic: AAOx3 Psychiatric: interacting appropriately ICD10 Worksheet Patient Problems: Problems Problem Status Onset allergic reaction to Oxycontin Active breast cancer Active breast reconstruction Active post mastectomy Active Abscess of right breast Acute Cellulitis of right breast Acute Cough Acute Fever Acute
[2017-07-22] MEDS ORDERED: GUAIFENESIN/DM 10 ML UDCUP PO PRN (10:27)
[2017-07-22] MEDS ORDERED: ALBUTEROL 3 ML DEYVIAL IH PRN (10:27)
[2017-07-22] MEDS ORDERED: ALTEPLASE 2 MG VIAL IVP PRN ×2 (10:36→13:37)
--- NOTE | 2017-07-22 10:47 | PCMIDPN ---
Assessment/Plan: 1. Right breast cellulitis in patient with previous history of breast cancer/ lymphedema status post removal of breast implants on both sides: Operative cultures are growing enterococcus faecalis, susceptibilities are pending. Will discontinue Ancef and start vancomycin 1 g IV q.12 hours pending susceptibilities. VRE seems less likely. 2. Cough with history of valley fever: Not hypoxic, although diminished breath sounds/wheezing right base. Repeat chest x-ray today. Over 25 min was spent with this patient today. 07/22/17 10:43 Subjective: Superficial swab done by Dr. Wilson and operative cultures are growing enterococcus faecalis. Patient feels unwell, with chills and did not sleep well. Some body aches. Also notes a new cough, nonproductive. Is concerned about her valley fever. Objective: Ancef 2 g IV q.8 hours day 2 T-max 37.8 degrees Vital Signs Temp Pulse Resp BP Pulse Ox 37.8 C 102 H 18 121/72 H 93 07/22/17 07:38 07/22/17 07:38 07/22/17 07:38 07/22/17 07:38 07/22/17 07:38 Microbiology 07/20/17 17:05 Gram Stain - Final Breast - Eswab Laboratory Results 07/22/17 04:20 07/20/17 10:10 07/21/17 07/22/17 07/23/17 05:59 05:59 05:59 Intake Total 1000 2700 Output Total 595 1142 Balance 405 1558 Blood cultures remain negative Superficial swab and operative cultures right breast are growing enterococcus faecalis, susceptibilities are pending no previous history of enterococcus in her microbiology before - Physical Exam General Appearance: other (Looks tired, but nontoxic) EENT: No thrush Respiratory: crackles, wheezing (Right base) Cardiac/Chest: regular rate, rhythm, other (Patient has 2 large CARMELITA drains coming from right and left breast areas. These are empty. Patient has warmth and pinkish blanching erythema on the right chest wall, no bullae. No drainage from the incision. [place] are in place bilaterally. The left incision looks fine without evidence of cellulitis.) Extremities: other (Right arm swollen consistent with history of lymphedema) Abdomen: non-tender, soft Skin: other (Pinkish erythema consistent with cellulitis right chest wall, no other rashes noted) Neuro/Psych: oriented x 3 ICD10 Worksheet Patient Problems: Problems Problem Status Onset allergic reaction to Oxycontin Active breast cancer Active breast reconstruction Active post mastectomy Active Abscess of right breast Acute Cellulitis of right breast Acute Cough Acute Fever Acute
[2017-07-22] MEDS: VANCOMYCIN HCL/NORMAL SALINE 250 ML IV SCH ×2 (12:26→23:06)
[2017-07-22] MEDS ORDERED: CHLORPHENIRAMINE PO PRN (12:30)
[2017-07-22] MEDS ORDERED: HYDROCODONE PO PRN (12:30)
--- NOTE | 2017-07-22 13:40 | PDRADPN ---
Radiology Procedure Note Date of Procedure: 07/22/17 Radiologist: Lenny Blood Anesthesia: Local (Specify) Pre-op Diagnosis: home iv access needed Post-op Diagnosis: same Indication: iv access Procedure: Lue PICC Finding(s): patent basilic 40cm SL power picc at cavoatrial junction. ok to use. Inf/Abcess present in the surg proc area at time of surgery?: No EBL: Minimal Complications: none
[2017-07-22] MEDS: LORazepam 1 MG TAB PO PRN (20:06)
[2017-07-22] MEDS: ATORVASTATIN CALCIUM 20 MG TAB PO SCH (20:07)
[2017-07-22] MEDS: ESCITALOPRAM OXALATE 10 MG TAB PO SCH (20:07)
[2017-07-22] MEDS: HYDROmorphONE/DILAUDID 1 MG/ML INJ IVP PRN (20:07)
[2017-07-23 05:16] LABS: PLATELET COUNT 182 10^3/uL (150-400)
[2017-07-23] MEDS: buPROPion XL 150 MG TAB PO SCH (09:13)
[2017-07-23] MEDS: SENNOSIDES/DOCUSATE SODIUM TAB PO SCH ×2 (09:13→21:35)
[2017-07-23] MEDS: HYDROCODONE/APAP 10/325 TAB PO PRN ×3 (09:13→21:32)
[2017-07-23] MEDS: GABAPENTIN 300 MG CAP PO SCH ×2 (09:14→21:33)
[2017-07-23] MEDS: FLUTICASONE IH SCH (09:20)
[2017-07-23] MEDS: SALMETEROL IH SCH (09:20)
[2017-07-23] MEDS ORDERED: IBUPROFEN 600 MG TAB PO PRN (10:03)
--- NOTE | 2017-07-23 11:03 | HOSPPROG ---
Hospitalist Progress Note Assessment/Plan: Right breast infection s/p b/l implant removal POD #3 - Enterococcus on wound Cx. BCx's ngtd. Pt felt fever/chills overnight. Discussed with ID. -cont Vancomycin for enterococcal coverage per ID -await sensitivities to determine outpt therapy -low threshold to repeat BCx's if fever recurs AHRF - ~90% RA this am. CXR yest pers reviewed / interp- bibasilar atelectasis Left ear pain - mild erythema of left TM, on atbx, may be some pressure injury post-intubation H/O breast cancer - in remission Hyperlipidemia - cont statin Full code DVT PPLX - lovenox Dispo - cont inpt Subjective: Pt doing ok. A little confused, she notes 2/2 opiates. No fevers/ chills. Pain controlled. Eating well. Good uop. Objective: Vital Signs Temp Pulse Resp BP Pulse Ox 37.3 C 88 16 154/79 H 92 07/23/17 07:51 07/23/17 07:51 07/23/17 07:51 07/23/17 07:51 07/23/17 07:51 Microbiology 07/20/17 17:05 Gram Stain - Final Breast - Eswab Laboratory Results 07/23/17 04:50 07/20/17 10:10 07/22/17 07/23/17 07/24/17 05:59 05:59 05:59 Intake Total 2700 850 Output Total 1142 62 Balance 1558 788 PT 13.7 SEC (12.0-15.0) 07/20/17 10:10 INR 1.03 (0.83-1.16) 07/20/17 10:10 - Physical Exam Constitutional: no apparent distress Eyes: PERRL Ears, Nose, Mouth, Throat: moist mucous membranes Cardiovascular: regular rate and rhythym Respiratory: no respiratory distress, clear to auscultation Gastrointestinal: normoactive bowel sounds, soft, non-tender abdomen Skin: warm, other (chest wall incisions c/d/i) Musculoskeletal: full muscle strength Neurologic: AAOx3 Psychiatric: interacting appropriately ICD10 Worksheet Patient Problems: Problems Problem Status Onset allergic reaction to Oxycontin Active breast cancer Active breast reconstruction Active post mastectomy Active Abscess of right breast Acute Cellulitis of right breast Acute Cough Acute Fever Acute
[2017-07-23] MEDS: diphenhydrAMINE 25 MG CAP PO PRN ×2 (12:00→21:32)
[2017-07-23] MEDS: VANCOMYCIN HCL/NORMAL SALINE 250 ML IV SCH ×2 (12:07→22:15)
--- NOTE | 2017-07-23 13:02 | PCMIDPN ---
Assessment/Plan: Assessment: Right breast infection complicated by implant status post reconstruction after mastectomy bilaterally for breast cancer. Patient with enterococcus faecalis growing in culture. Covered currently with vancomycin. Awaiting sensitivities to return. Once we get this information we can design an outpatient treatment course. At this moment I think it is premature to discharge her without this information. We will continue the vancomycin in the meantime and check a trough level today. Chest x-ray looks almost normal from yesterday. Only a small right-sided pleural effusion and associated atelectasis. No clear cause for ongoing cough. Plan: 1. Continue IV vancomycin at present dose. 2. Follow up on vancomycin trough. 3. Follow up on sensitivities of Enterococcus faecalis once available. 07/23/17 12:59 07/23/17 13:01 Subjective: Patient is resting in her hospital room. No new complaint. Denies fevers or chills. Appears to be tolerating the vancomycin without issue. Objective: Vancomycin # 1 Vital Signs Temp Pulse Resp BP Pulse Ox 37.3 C 91 16 160/82 H 93 07/23/17 11:48 07/23/17 11:48 07/23/17 11:48 07/23/17 11:48 07/23/17 11:48 Microbiology 07/20/17 17:05 Gram Stain - Final Breast - Eswab Laboratory Results 07/23/17 04:50 07/20/17 10:10 07/22/17 07/23/17 07/24/17 05:59 05:59 05:59 Intake Total 2700 850 Output Total 1142 62 Balance 1558 788 - Physical Exam General Appearance: WD/WN, alert, no apparent distress, non-toxic Respiratory: lungs clear, normal breath sounds, No respiratory distress Cardiac/Chest: regular rate, rhythm, No tachycardia Extremities: non-tender, normal inspection Abdomen: non-tender, soft Skin: normal color, warm/dry, other (Bilateral breast incisions clean dry and intact. Right breast incision with mild amount of dusky erythema. This appears decreased. No drainage.), No rash Neuro/Psych: alert, normal mood/affect, oriented x 3 ICD10 Worksheet Patient Problems: Problems Problem Status Onset allergic reaction to Oxycontin Active breast cancer Active breast reconstruction Active post mastectomy Active Abscess of right breast Acute Cellulitis of right breast Acute Cough Acute Fever Acute
[2017-07-23] MEDS: SODIUM CL NASAL 45 ML BTL EACHNARE PRN ×3 (15:50→21:34)
[2017-07-23] MEDS: ATORVASTATIN CALCIUM 20 MG TAB PO SCH (21:33)
[2017-07-23] MEDS: ESCITALOPRAM OXALATE 10 MG TAB PO SCH (21:33)
[2017-07-23] MEDS: LORazepam 1 MG TAB PO PRN (21:33)
[2017-07-24] MEDS: buPROPion XL 150 MG TAB PO SCH (08:21)
[2017-07-24] MEDS: GABAPENTIN 300 MG CAP PO SCH (08:22)
[2017-07-24] MEDS: SODIUM CL NASAL 45 ML BTL EACHNARE PRN (08:23)
[2017-07-24] MEDS: SENNOSIDES/DOCUSATE SODIUM TAB PO SCH (08:26)
[2017-07-24] MEDS: diphenhydrAMINE 25 MG CAP PO PRN (09:12)
[2017-07-24] MEDS: VANCOMYCIN HCL/NORMAL SALINE 250 ML IV SCH (11:16)
[2017-07-24] MEDS ORDERED: AMPICILLIN/SULBACTAM 3 GM in NS 100 ML IV ONE (11:27)
--- NOTE | 2017-07-24 12:08 | PCMIDPN ---
Assessment/Plan: # R breast cellulitis s/p B implant removal, cx w cristobal-S enterococcus. Unclear PCN allergy. No residual cellulitic changes, incision healing well, B drains w serous fluid. 07/20 blood cx are negative --tolerated Unasyn, will send home on Augmentin 875 twice daily times 10 days, may truncate therapy based on clinical response --follow up in my office next week # fever resolved since breast implant removal and treatment of infection Medications Vancomycin IV #2 Subjective: feeling better no pain wants to go home Objective: Vital Signs Temp Pulse Resp BP Pulse Ox 37.1 C 90 20 174/92 H 92 07/24/17 07:37 07/24/17 07:37 07/24/17 07:37 07/24/17 07:37 07/24/17 07:37 Microbiology 07/20/17 17:05 Gram Stain - Final Breast - Eswab Laboratory Results 07/23/17 04:50 07/20/17 10:10 07/23/17 07/24/17 07/25/17 05:59 05:59 05:59 Intake Total 850 250 Output Total 62 30 Balance 788 220 - Physical Exam General Appearance: alert, no apparent distress Respiratory: No accessory muscle use Skin: other (B breast incision w zhang in place; B CARMELITA drains w serosang fluid) Neuro/Psych: alert, normal mood/affect, oriented x 3 - Line/s LUE PICC Lines: No drainage, No erythema - Time Spent With Patient Time Spent with Patient: greater than 35 minutes (Care coordinated with hospitalist, reviewed antibiotic allergies, optimal Rx for enterococcus) Time Spent with Patient: Greater than 35 minutes spent on this patients care, greater than 50% of time spent counseling, educating, and coordinating care regarding the above mentioned plan. ICD10 Worksheet Patient Problems: Problems Problem Status Onset allergic reaction to Oxycontin Active breast cancer Active breast reconstruction Active post mastectomy Active Abscess of right breast Acute Cellulitis of right breast Acute Cough Acute Fever Acute
[2017-07-24 12:41] VITALS: BP 173/97
--- NOTE | 2017-07-25 15:50 | ASDISCHSUM ---
Discharge Information Plan Status:Home with No Needs Medically Cleared to Leave:07/24/2017 Discharge Date:07/24/2017 02:37 PM D/C Disposition: ADT D/C Disposition:Home, Routine, Self-Care Projected Discharge Date:07/24/2017 11:00 AM Transportation at D/C: Discharge Delay Reason: Follow-Up Date:07/24/2017 11:00 AM Discharge Slot: Final Diagnosis: Placement Information Referral Type:Home Infusion Referral ID:[id number] Provider Name: Address 1: Phone Number: Address 2: Fax Number: City: Selection Factors: State: Referral Type:*Home Health Care Services Referral ID:[id number] Provider Name: Address 1: Phone Number: Address 2: Fax Number: City: Selection Factors: State: Patient Contact Information Contact Name:GEOFFREY Relationship: Address:[address] [place] [address] Home Phone: City:[facility] Phone: [facility]/Zip Code:[place] [address] Email: Financial Information Financial Class:[facility] Primary Plan Desc:[facility] Primary Plan Number:[id number] Secondary Plan Desc: Secondary Plan Number: Assessment Information [facility] Initial CM Assessment Living Arrangements What is your living Answers: With Spouse arrangement? Who do you live with? Type Of Residence What kind of residence do Answers: House you live in? Case Management Evaluation Functional: Able to Answers: Yes return Home with Prior Level of Function/Care Discharge Plan Comments Coordination Status Comments Notes: Pt was admitted with R breast cellulitis. She has a hx of breast CA in 2011 with bilateral mastectomies, chemo, and radiation. She is s/p removal of both implants, I&D of R breast. Cultures pending, ID following. Pt lives with her in [place]. She is currently on IV Ancef and has had [facility] in the past for home infusion needs. D/C needs unclear at this time. CM will follow. Date Signed: 07/21/2017 11:41 AM Electronically Signed By:SOFI Lobo Case Management Discharge Plan Note Case Management Discharge Discharge Order Complete? Answers: Yes Patient to Obtain Answers: via Family Medications Transportation Arranged Answers: Family/Friends EMTALA Complete Answers: No Case Management Transport Answers: No Form Complete Faxed Final Orders Answers: No Agency/Facility Transfer Answers: No Report Printed & Faxed to Receiving Agency Family Notified Answers: No Discharge Comments Notes: CM spoke w/ Dr. Wilson, Dr. Martinez and Michelle regarding d/c POC. Pt is able to switch to oral antibiotics. No other needs at this time. CM available for changes. Plan: Independent Date Signed: 07/24/2017 02:03 PM Electronically Signed By:DANIEL Ford Intervention Information Intervention Type:*Incorrect Registration Date of Service:07/20/2017 12:12 PM Patient Type:Observation Staff Member:DANICA Mckenzie, Trina Hours: Discipline: Severity: Comment:
== END 2017-07-24 14:37 | disposition home or self-care (01) | DRG 907 ==
LOC: F3E 09:39 → OBSVTOIN 09:52
PROVIDERS: ADMIT Internal Medicine Infectious Disease; ATTEND Internal Medicine Infectious Disease
DX: T85.79XA Infection and inflammatory reaction due to other internal prosthetic devices, implants and grafts, initial encounter (principal); J96.01 Acute respiratory failure with hypoxia; J98.11 Atelectasis; J90 Pleural effusion, not elsewhere classified; B95.2 Enterococcus as the cause of diseases classified elsewhere; E78.5 Hyperlipidemia, unspecified; Z85.3 Personal history of malignant neoplasm of breast; N61.0 Mastitis without abscess; H92.02 Otalgia, left ear
CPT/HCPCS: C1751; J0171; J0295; J0690; J0696; J1170; J1580; J2250; J2370; J2405; J2704; J3010; J3370

== ENCOUNTER → 2018-08-14 | Outpatient (CLI) | payer OTHER | LOC: FIMAGING 08:58 ==